=== PATIENT | female | born 1955 | race Hispanic/Latino ===

== ENCOUNTER 2021-08-23 19:37 | Emergency (ER) | payer MEDICARE, OTHER ==
[~2021-08-23] VITALS: Ht 152.4 cm; Wt 93.4 kg
[2021-08-23] MEDS ORDERED: FAMOTIDINE 20 MG/2 ML VIAL IV STA (20:31)
[2021-08-23] MEDS ORDERED: DIPHENHYDRAMINE HCL INJ 50 MG/ML VIAL IV ONE (20:45)
[2021-08-23] MEDS ORDERED: METHYLPREDNISOLONE SOD SUCC 125 MG/2ML VIAL IV ONE (20:45)
[2021-08-23] MEDS ORDERED: METHYLPREDNISOLONE SOD SUCC 125 MG/2ML VIAL ONE (20:47)
[2021-08-23] MEDS ORDERED: DIPHENHYDRAMINE HCL INJ 50 MG/ML VIAL ONE (20:47)
[2021-08-23] MEDS ORDERED: SODIUM CHLORIDE 0.9% 100 ML ONE (20:48)
[2021-08-23] MEDS ORDERED: FAMOTIDINE 20 MG/2 ML VIAL IV ONE (20:48)
[2021-08-23] MEDS ORDERED: PREDNISONE20 MG PO (21:10)
[2021-08-23] MEDS ORDERED: FAMOTIDINE40 MG PO (21:14)
[2021-08-23] MEDS ORDERED: EPINEPHRIN0.3 MG/0.3 IM (21:39)
== END 2021-08-23 22:01 | disposition home or self-care (01) ==
LOC: FSED 20:38
DX: T78.3XXA Angioneurotic edema, initial encounter (principal); I10 Essential (primary) hypertension; E11.9 Type 2 diabetes mellitus without complications; E78.5 Hyperlipidemia, unspecified; E03.9 Hypothyroidism, unspecified
CPT/HCPCS: 99283; J1200; J2930; J7050

== ENCOUNTER 2024-06-30 17:03 | Emergency (ER) | payer MEDICARE, OTHER ==
[~2024-06-30] VITALS: Ht 152.4 cm; Wt 73.9 kg
[~2024-06-30 17:03] MED LIST: EPINEPHRIN0.3 MG/0.3 IM; FAMOTIDINE40 MG PO; PREDNISONE20 MG PO
[2024-06-30 18:20] VITALS: PULSE 58; RESP 16; TEMP 98
[2024-06-30] MEDS: TRAMADOL HCL 50 MG TAB PO ONE (18:55)
[2024-06-30] MEDS ORDERED: KETOROLAC TROMETHAMINE 30 MG/ML VIAL IM ONE (19:00)
[2024-06-30] MEDS ORDERED: ULTRAM 50MG50 MG PO (20:31)
[2024-06-30] MEDS: TETANUS/DIPHTHERIA TOX ADULT 0.5 ML SYR IM ONE (20:50)
[2024-06-30] MEDS: KETOROLAC TROMETHAMINE 30 MG/ML VIAL IM STA (20:58)
[2024-06-30] MEDS ORDERED: KETOROLAC TROMETHAMINE 30 MG/ML VIAL ONE (21:00)
[2024-06-30 23:29] VITALS: BP 128/72; O2SAT 100
== END 2024-06-30 21:30 | disposition home or self-care (01) ==
LOC: ER 17:15
DX: S22.42XA Multiple fractures of ribs, left side, initial encounter for closed fracture (principal); S40.812A Abrasion of left upper arm, initial encounter; W01.0XXA Fall on same level from slipping, tripping and stumbling without subsequent striking against object, initial encounter; Y93.01 Activity, walking, marching and hiking; Y92.89 Other specified places as the place of occurrence of the external cause; I10 Essential (primary) hypertension; E11.8 Type 2 diabetes mellitus with unspecified complications; E78.5 Hyperlipidemia, unspecified
CPT/HCPCS: 70450; 71101; 73030; 73060; 90471; 90714; 99284; J1885